=== PATIENT | female | born 1975 | race Caucasian/White ===

== ENCOUNTER 2024-05-25 12:06 | Day surgery (SDC) | payer OTHER ==
[~2024-05-25] VITALS: Ht 165.1 cm; Wt 98.7 kg
[~2024-05-25 12:06] MED LIST: Lactated Ringer's 1,000 ML IV ONE; propofoL 50 ML IV ONE
[2024-05-25] MEDS ORDERED: FOLI1 (12:48)
[2024-05-25] MEDS ORDERED: VILAZODONE HCL20 MG (12:48)
[2024-05-25] MEDS ORDERED: CETI5 (12:49)
[2024-05-25] MEDS ORDERED: METTREX2.5 (12:49)
[2024-05-25] MEDS ORDERED: Zofran4 MG (12:50)
[2024-05-25] MEDS ORDERED: Lactated Ringer's 1,000 ML IV ONE (13:05)
[2024-05-25 14:29] VITALS: BP 122/88
--- NOTE | 2024-05-25 14:30 | NUR ---
05/25/24 1430 Darius Jaffe PT C/O HEARTBURN STATES SHE WILL TAKE ANTIACIDS WHEN SHE GETS HOME. NO OTHER COMPLAINTS.
== END 2024-05-25 14:32 | disposition home or self-care (01) ==
LOC: ORSCSDS 12:06
PROVIDERS: Specialist
PROC: 0DB58ZX Excision of Esophagus, Via Natural or Artificial Opening Endoscopic, Diagnostic (ICD-10-PCS; principal; 2024-05-25 13:15)
PROC: 0DB68ZX Excision of Stomach, Via Natural or Artificial Opening Endoscopic, Diagnostic (ICD-10-PCS; principal; 2024-05-25 13:15)
PROC: 0DJD8ZZ Inspection of Lower Intestinal Tract, Via Natural or Artificial Opening Endoscopic (ICD-10-PCS; principal; 2024-05-25 13:15)
PROC: 0D758ZZ Dilation of Esophagus, Via Natural or Artificial Opening Endoscopic (ICD-10-PCS; principal; 2024-05-25 13:15)
DX: R13.10 Dysphagia, unspecified (principal); K29.70 Gastritis, unspecified, without bleeding; K22.2 Esophageal obstruction; K44.9 Diaphragmatic hernia without obstruction or gangrene; R12 Heartburn; K64.8 Other hemorrhoids; K57.30 Diverticulosis of large intestine without perforation or abscess without bleeding; Z12.11 Encounter for screening for malignant neoplasm of colon; Z87.19 Personal history of other diseases of the digestive system; M06.9 Rheumatoid arthritis, unspecified; E07.9 Disorder of thyroid, unspecified; Z79.899 Other long term (current) drug therapy
CPT/HCPCS: 43249; 43239; G0121; 88305; C1726; J2704; J7120

== ENCOUNTER 2024-06-03 03:15 | Emergency (ER) | payer OTHER ==
[~2024-06-03] VITALS: Ht 165.1 cm; Wt 99.8 kg
[~2024-06-03 03:15] MED LIST changes: +CETI5; +FOLI1; -Lactated Ringer's 1,000 ML IV ONE; +METTREX2.5; +VILAZODONE HCL20 MG; +Zofran4 MG; -propofoL 50 ML IV ONE
[2024-06-03] MEDS ORDERED: NS 1,000 ML IV SCH (03:35)
[2024-06-03] MEDS ORDERED: Ketorolac Tromethamine 30mg Vial IV ONE (03:35)
[2024-06-03] MEDS ORDERED: LANSOPRAZOLE30 MG PO (03:53)
[2024-06-03] MEDS ORDERED: OMEP20ER PO (03:53)
[2024-06-03] MEDS ORDERED: CLON1 (03:54)
[2024-06-03] MEDS ORDERED: VIBATIV750 MG IV (03:54)
[2024-06-03] MEDS ORDERED: MOUNJARO2.5 MG/0.5 SQ (03:55)
[2024-06-03 03:58] LABS: BASOPHILS ABSOLUTE AUTO 0.04 K/mm3 (0.00-0.23); BASOPHILS PERCENT AUTO 0 % (0-2); EOSINOPHILS ABSOLUTE AUTO 0.09 K/mm3 (0.00-0.68); EOSINOPHILS PERCENT AUTO 1 % (0-6); Hematocrit 36.9 % (33.0-51.0); Hemoglobin 12.1 g/dL (11.5-16.0); IMMATURE GRAN ABSOLUTE AUTO 0.05 K/mm3 (0.00-0.10); IMMATURE GRAN PERCENT AUTO 0 % (0-1); LYMPHOCYTES ABSOLUTE AUTO 2.71 K/mm3 (0.84-5.20); LYMPHOCYTES PERCENT AUTO 22 % (21-46); MONOCYTES ABSOLUTE AUTO 1.04 K/mm3 (0.16-1.47); MONOCYTES PERCENT AUTO 8 % (4-13); Mean Corpuscular HGB 29.7 pg (26.0-34.0); Mean Corpuscular HGB Conc 32.8 g/dL (31.5-36.5); Mean Corpuscular Volume 91 fL (80-100); Mean Platelet Volume 10.9 fL (9.1-12.4); NEUTROPHILS ABSOLUTE AUTO 8.69 K/mm3 (1.96-9.15); NEUTROPHILS PERCENT AUTO 69 % (41-73); Platelet Count 326 K/mm3 (150-400); RDW Coefficient Variation 14.2 % (11.7-14.2); RDW Standard Deviation 47.3 fL (35.1-46.3); Red Blood Cell Count 4.07 M/mm3 (3.80-5.20); White Blood Cell Count 12.62 K/mm3 (4.00-11.30)
[2024-06-03 04:18] LABS: Albumin, Blood 3.3 g/dL (3.4-5.0); Albumin/Globulin Ratio 0.9 (0.8-1.8); Bilirubin, Total 0.6 mg/dL (0.1-1.0); Bun/Creatinine Ratio 16.7 (12.0-20.0); Calcium, Blood 8.7 mg/dL (8.5-10.1); Creatinine, Blood 0.9 mg/dL (0.40-1.00); Globulin, Blood 3.8 g/dL (2.2-4.0); Potassium, Blood 3.6 mmol/L (3.5-5.5); Total Protein, Blood 7.1 g/dL (6.4-8.2)
[2024-06-03] MEDS ORDERED: HYDROmorphone HCl/Pf 1MG SYR IV ONE (04:50)
[2024-06-03] MEDS ORDERED: Ondansetron HCl 2 MG / ML 2ML Vial IV ONE (05:00)
[2024-06-03 05:39] LABS: Source, Urine Clean Catch
[2024-06-03] MEDS ORDERED: Percocet 5-3251 EACH PO (05:42)
[2024-06-03] MEDS ORDERED: CYCL10 PO (05:42)
[2024-06-03 05:44] LABS: Appearance, Urine Clear (Clear); Bilirubin, Urine Neg (Neg); Blood, Urine Neg (Neg); Color, Urine Yellow (P-Yellow); Glucose Qualitative, Urine Neg (Neg); Ketones, Urine Neg (Neg); Leukocyte Esterase, Urine Neg (Neg); Nitrite, Urine Neg (Neg); Protein, Urine 1+ (Neg); Urobilinogen, Urine NORM (Normal)
[2024-06-03 05:55] VITALS: BP 117/68
== END 2024-06-03 05:52 ==
LOC: ER 03:15
PROVIDERS: Emergency Medicine
DX: M25.552 Pain in left hip (principal); Z79.899 Other long term (current) drug therapy; Z88.0 Allergy status to penicillin; Z88.2 Allergy status to sulfonamides; Z88.8 Allergy status to other drugs, medicaments and biological substances; Z91.041 Radiographic dye allergy status
CPT/HCPCS: 74176; 80053; 83605; 85025; 96361; 96374; 96374-59; 99284-25; J1170; J1885; J2405; J7030

== ENCOUNTER 2025-08-05 08:52 | Inpatient (IN) | payer OTHER ==
[2025-08-05] VITALS (17 sets, daily range): BP systolic 114–150; BP diastolic 68–93
[~2025-08-05] VITALS: Ht 165.1 cm; Wt 84.7 kg
[~2025-08-05 08:52] MED LIST changes: +CLON.5 PO; +CYCL10 PO; +ETOD500 PO; +FOLI1 PO; +LANSOPRAZOLE30 MG PO; -METTREX2.5; +MOUNJARO2.5 MG/0.5 SQ; +OMEP20ER PO; +Ondansetron Odt8 MG MM; +Percocet 5-3251 EACH PO; +TREXALL7.5 MG PO; +VIBATIV750 MG IV; +VILAZODONE HCL20 MG PO; +WEGOVY0.25 MG/0. SC; +XYZAL5 MG PO
[2025-08-05] MEDS ORDERED: CeFAZolin Sodium 2,000 MG in NS 100 ML IV SCH (09:00)
[2025-08-05] MEDS ORDERED: MetroNIDAZOLE 500MG/NS 100 ml 100 ML IV SCH (09:00)
[2025-08-05] MEDS ORDERED: Heparin Sodium,Porcine 5,000 UNIT/0.5 ML SDV SC ONE (09:05)
[2025-08-05] MEDS ORDERED: FentaNYL Citrate 50 MCG/ML 5 ML Injection ONE (10:38)
[2025-08-05] MEDS ORDERED: Midazolam HCl 1MG / ML 2ML Vial ONE (10:39)
--- NOTE | 2025-08-05 10:53 | NUR ---
Ambulatory in Day SurgeryPre-Op teaching done. Pt verbalizes understanding. History, Chart, Medications and Allergies reviewed before start of procedure.Patient confirms NPO status and agrees with scheduled surgery. EXCEPT FOR CLEAR PROTEIN DRINK AT 0730 PER MD ORDER/COLORECTAL PROTOCOL Patient reports completing Chlorhexadine shower X2 prior to admission to hospital.
[2025-08-05] MEDS ORDERED: Sugammadex Sodium 200 MG/2ML SDV (100 MG/ML) ONE (11:14)
[2025-08-05] MEDS ORDERED: Bupivacaine 0.5% HCl 5 MG/ML 30MLVIAL ONE (11:39)
[2025-08-05] MEDS ORDERED: Rocuronium Bromide 10 MG/ML 5ML Injection IV ONE ×2 (12:08→15:15)
[2025-08-05] MEDS ORDERED: Phenylephrine HCl 100 MCG/ML-NS 10MLSYR (1MG/10ML) ONE (12:31)
[2025-08-05] MEDS ORDERED: Labetalol HCL 5 MG/ML 4ML Injection (Single Dose) ONE (12:57)
[2025-08-05] MEDS ORDERED: FentaNYL Citrate 50 MCG/ML 2 ML Injection IV PRN ×2 (13:00)
[2025-08-05] MEDS ORDERED: HYDROmorphone HCl/Pf 1MG SYR IV PRN ×3 (13:00→15:55)
[2025-08-05] MEDS ORDERED: Ondansetron HCl 2 MG / ML 2ML Vial IV PRN ×2 (13:00→15:55)
[2025-08-05] MEDS ORDERED: Ondansetron HCl 2 MG / ML 2ML Vial ONE (13:44)
[2025-08-05] MEDS ORDERED: Dexamethasone Sod Phos 10 MG/ML 1ML VIAL ONE (13:44)
[2025-08-05] MEDS ORDERED: HYDROmorphone HCl/Pf 1MG SYR ONE ×2 (15:17→16:17)
[2025-08-05] MEDS ORDERED: Ketorolac Tromethamine 30mg Vial ONE (15:47)
[2025-08-05] MEDS ORDERED: FLU VACC TS2025-26(6MOS UP)/PF 45 MCG/0.5 ML SYRINGE IM SCH (15:55)
--- NOTE | 2025-08-05 16:44 | NUR ---
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 S/P SIGMOID COLECTOMY. LETHARGIC - EASILY AROUSABLE W/ VERBAL STIMULI. SPEECH SOFT - COMMUNICATING NEEDS EFFECTIVELY. VSS. REPORTING PAIN W/ COUGHING - PILLOW PROVIDED FOR SPLINTING. TOLERABLE AT REST. X4 INCISION SITES W/ WOUND GLUE C/D/I. DENIES N/V - WATER AND JELLO WITHIN REACH. IVF INFUSING PER EMAR. FULTON CATHETER IN PLACE - DRAINING YELLOW URINE TO GRAVITY. CALL LIGHT IN REACH.
--- NOTE | 2025-08-05 18:03 | NUR ---
SHIFT SUMMARY NO ACUTE CHANGES SINCE ARRIVAL NOTE. PATIENT RESTING - EASILY AROUSABLE W/ STIMULI. VISITING W/ FAMILY AT BEDSIDE. VSS. PAIN TOLERABLE AT THIS TIME. X4 INCISION SITES REMAIN C/D/I. TOLERATING SIPS OF CLEAR LIQUIDS. IVF INFUSING PER EMAR. FULTON DRAINING YELLOW URINE TO GRAVITY. CALL LIGHT IN REACH.
[2025-08-06 05:10] VITALS: BP 117/67
--- NOTE | 2025-08-06 05:19 | NUR ---
SHIFT SUMMARY NO ACUTE EVENTS DURING NOC SHIFT. PT REPORTS INTERMITTENT PAIN DURING SHIFT; MEDICATED PER EMAR. PT FULTON DRAINING YELLOW URINE TO COLLECTION BAG. LAP SITES CDI WITH WOUND GLUE. PT TOLERATING PO FLUIDS AND MEDICATIONS.
--- NOTE | 2025-08-06 06:06 | NUR ---
PT GIVEN HEATING PAD FOR PAIN
[2025-08-06 07:02] VITALS: BP 140/82
[2025-08-06 07:53] LABS: Hematocrit 33.9 % (33.0-51.0); Hemoglobin 11.1 g/dL (11.5-16.0); Mean Corpuscular HGB Conc 32.7 g/dL (31.5-36.5); Mean Corpuscular Volume 94 fL (80-100); NRBC ABSOLUTE 0.00 K/mm3 (0.00-0.02); NRBC Auto 0.0 /100 WBC (0.0-0.2); Platelet Count 239 K/mm3 (150-400); RDW Coefficient Variation 13.0 % (11.7-14.2); RDW Standard Deviation 44.6 fL (35.1-46.3)
[2025-08-06 08:15] LABS: Anion Gap 7.0 mmol/L (3-11); Blood Urea Nitrogen 7.0 mg/dL (8-24); CO2, Blood 26.0 mmol/L (21-32); Calcium, Blood 8.5 mg/dL (8.5-10.1); Chloride, Blood 108.0 mmol/L (98-108); Creatinine, Blood 0.72 mg/dL (0.40-1.00); Glucose, Blood 103.0 mg/dL (70-99); Magnesium, Blood 1.9 mg/dL (1.6-2.4); Potassium, Blood 3.8 mmol/L (3.5-5.5); Sodium, Blood 137.0 mmol/L (136-145)
[2025-08-06] MEDS ORDERED: Enoxaparin 40 MG/0.4 ML SYR SC SCH (09:00)
[2025-08-06] MEDS ORDERED: Folic Acid 1 MG TAB PO SCH (09:00)
[2025-08-06] MEDS ORDERED: Ondansetron 4 MG SoluTab MM PRN (13:20)
[2025-08-06 15:11] VITALS: BP 119/69
--- NOTE | 2025-08-06 17:16 | NUR ---
SUMMARY NO ACUTE CHANGES T/O SHIFT. PT'S KIRSTIN STRAUSS'Ritika THIS AM, PT HAS BEEN VOIDING. TOLERATIONG FULL LIQUID DIET. MEDICATED PER ORDERS FOR PAIN. PT REQUESTED NAUSE MED TO GO WITH PAIN MED. PT AMBULATING INDEPENDENTLY IN ROOM. PLEASANT AND COOPERATIVE.
[2025-08-06 19:11] VITALS: BP 126/74
[2025-08-07 04:55] VITALS: BP 117/62
--- NOTE | 2025-08-07 06:37 | NUR ---
SUMMARY PT APPEARS SLEEPING.SNORING.
[2025-08-07 07:17] VITALS: BP 113/68
[2025-08-07 14:25] VITALS: BP 116/66
--- NOTE | 2025-08-07 16:11 | NUR ---
DR MCKOY IN TO SEE PT.
--- NOTE | 2025-08-07 17:53 | NUR ---
SUMMARY NO ACUTE CHANGES TO SHIFT. PT PASSING FLATUS. ADVANCED TO REGULAR DIET FOR DINNER, PT REPORTS TOLERATED WELL. INDEPENDENT, AMBULATED IN HALLS. PLEASANT AND COOPERATIVE. CALL LIGHT IN REACH.
[2025-08-07 19:27] VITALS: BP 105/64
[2025-08-08 05:25] VITALS: BP 86/52
[2025-08-08 05:40] VITALS: BP 104/58
--- NOTE | 2025-08-08 06:31 | NUR ---
SUMMARY PT PASSING FLATUS WITH NO REPORTED BM YET.WILL DISCUSS WITH DAY RN ? POSSIBLY OBTAINING ORDER FOR BOWEL CARE TODAY WITH DR BURNS.
[2025-08-08 07:36] VITALS: BP 104/57
[2025-08-08] MEDS ORDERED: Acetaminophen650 M1 PO (09:11)
[2025-08-08] MEDS ORDERED: OXAYDO5 M1 PO (09:12)
--- NOTE | 2025-08-08 09:57 | NUR ---
DISCHARGE SUMMARY PT IS POD 3 ELECTIVE COLECTOMY. A&O x4, VSS, HRR, LUNGS CLEAR. ABLE TO MAKE NEEDS KNOWN. IND IN ROOM. TOLERATING REGULAR DIET WELL. PASSING GAS, NO BM YET. DENIES NAUSEA/VOMITING. LAP SITES x4, C/D/I, NO DRAINAGE. CLEARED BY MD TOMPKINS FOR DC HOME.
--- NOTE | 2025-08-08 10:51 | NUR ---
DISCHARGE INSTRUCTIONS REVIEWED & GIVEN. ESCORTED OUT VIA WC.
== END 2025-08-08 10:50 | disposition home or self-care (01) | DRG 331 ==
LOC: SURS 08:52
PROVIDERS: ADMIT Surgery
PROC: 8E0W4CZ Robotic Assisted Procedure of Trunk Region, Percutaneous Endoscopic Approach (ICD-10-PCS; 2025-08-05)
PROC: 3E03329 Introduction of Other Anti-infective into Peripheral Vein, Percutaneous Approach (ICD-10-PCS; 2025-08-05)
PROC: 0DBN4ZZ Excision of Sigmoid Colon, Percutaneous Endoscopic Approach (ICD-10-PCS; principal; 2025-08-05 12:00)
DX: K57.32 Diverticulitis of large intestine without perforation or abscess without bleeding (principal); F41.9 Anxiety disorder, unspecified; F32.A Depression, unspecified; E66.9 Obesity, unspecified; K21.9 Gastro-esophageal reflux disease without esophagitis; M06.9 Rheumatoid arthritis, unspecified; Z68.31 Body mass index [BMI] 31.0-31.9, adult; E89.0 Postprocedural hypothyroidism; Z90.710 Acquired absence of both cervix and uterus; Z98.51 Tubal ligation status; Z79.899 Other long term (current) drug therapy; Z88.0 Allergy status to penicillin; Z88.8 Allergy status to other drugs, medicaments and biological substances; Z88.2 Allergy status to sulfonamides; Z91.041 Radiographic dye allergy status; Z88.1 Allergy status to other antibiotic agents; Z86.79 Personal history of other diseases of the circulatory system
CPT/HCPCS: 36415; 80048; 82947; 83735; 85027; 88307; A9270; J0690; J1100; J1171; J1644; J1650; J1885; J2250; J2371; J2405; J2704; J3010; J7120